=== PATIENT | female | born 1955 | race Two or more races ===

== ENCOUNTER → 2019-12-24 | Outpatient (CLI) | payer OTHER | END | disposition home or self-care (01) | LOC: OFIC 805 10:01 | DX: R20.2 Paresthesia of skin (principal) ==

== ENCOUNTER 2020-03-31 14:16 | Outpatient (CLI) | payer OTHER ==
[~2020-03-31] VITALS: Ht 157.5 cm; Wt 58.1 kg
== END 2020-03-31 16:39 | disposition home or self-care (01) ==
LOC: OFIC 805 14:16
PROVIDERS: ATTEND Otolaryngology
DX: R20.2 Paresthesia of skin (principal); H61.23 Impacted cerumen, bilateral

== ENCOUNTER → 2020-06-30 | Outpatient (CLI) | payer OTHER | END | disposition home or self-care (01) | LOC: OFIC 805 13:19 | PROVIDERS: ATTEND Otolaryngology | DX: R20.2 Paresthesia of skin (principal); H61.23 Impacted cerumen, bilateral ==